=== PATIENT | male | born 1950 | race Caucasian/White ===

== ENCOUNTER 2023-05-11 12:48 | Emergency (ER) | payer OTHER ==
[2023-05-11] MEDS ORDERED: Lidocaine 1% (PF) 30 ML VIAL ONE (13:16)
[2023-05-11] MEDS ORDERED: Lidocaine 1% PF 5 ML VIAL ONE (13:17)
[2023-05-11] MEDS ORDERED: Bacitracin 1 PK ONE (14:23)
== END 2023-05-11 14:44 | disposition home or self-care (01) ==
LOC: ERS 12:48
DX: S61.216A Laceration without foreign body of right little finger without damage to nail, initial encounter (principal); W23.0XXA Caught, crushed, jammed, or pinched between moving objects, initial encounter
CPT/HCPCS: 12002; J2001